=== PATIENT | female | born 1970 | race Caucasian/White ===

== ENCOUNTER 2024-07-24 05:53 | Day surgery (SDC) | payer OTHER ==
[2024-07-23 13:10] VITALS: BP 102/71
[~2024-07-24] VITALS: Ht 165.1 cm; Wt 64.9 kg
[~2024-07-24 05:53] MED LIST: CLONAZEPAM1 MG PO; DEPAKOTE ER250 MG PO; RESTORIL30 M1 PO
[2024-07-24] MEDS ORDERED: LIDOCAINE HCL 1%/EPINEPHRINE 20ML VIAL IJ ONE (12:15)
[2024-07-24] MEDS ORDERED: CEFAZOLIN SODIUM 1,000 MG VIAL IV ONE (12:15)
[2024-07-24] MEDS ORDERED: ENOXAPARIN SODIUM 40 MG/0.4 ML SYRINGE SUBCUTANEO ONE (12:15)
[2024-07-24] MEDS ORDERED: EPINEPHRINE HCL/PF 1 MG/ML AMPUL IJ ONE (12:15)
[2024-07-24] MEDS ORDERED: CHLORHEXIDINE GLUCONATE 120 ML BOTTLE TOP ONE (15:15)
[2024-07-24] MEDS ORDERED: MORPHINE SULFATE 4 MG/ML VIAL IV ONE (16:45)
== END 2024-07-24 20:20 | disposition home or self-care (01) ==
LOC: CIR.AMB 05:53
PROVIDERS: ATTEND Specialist
DX: L98.7 Excessive and redundant skin and subcutaneous tissue (principal); E65 Localized adiposity